=== PATIENT | female | born 1995 | race Two or more races ===

== ENCOUNTER 2022-01-20 09:20 | Inpatient (IN) | payer OTHER ==
[~2022-01-20] VITALS: Ht 162.6 cm; Wt 3.2 kg
[2022-01-20] MEDS ORDERED: COMPLETE NATAL1 EACH PO (09:55)
== END 2022-01-23 15:39 | disposition home or self-care (01) | DRG 785 ==
LOC: LDR 09:20 → O/R 09:20 → OB/GYN 09:20 → O/R 11:02 → OB/GYN 14:40
PROVIDERS: ADMIT Obstetrics & Gynecology; ATTEND Obstetrics & Gynecology
PROC: 0UB70ZZ Excision of Bilateral Fallopian Tubes, Open Approach (ICD-10-PCS; 2022-01-20)
PROC: 4A1HXCZ Monitoring of Products of Conception, Cardiac Rate, External Approach (ICD-10-PCS; 2022-01-20)
PROC: 10D00Z1 Extraction of Products of Conception, Low, Open Approach (ICD-10-PCS; principal; 2022-01-20 11:45)
DX: O34.211 Maternal care for low transverse scar from previous cesarean delivery (principal); Z3A.38 38 weeks gestation of pregnancy; Z30.2 Encounter for sterilization; Z37.0 Single live birth; Z20.822 Contact with and (suspected) exposure to COVID-19